=== PATIENT | male | born 1940 ===

== ENCOUNTER → 2021-12-30 | Outpatient (CLI) | payer SELFPAY ==
[2021-12-30 16:51] LABS: BASO # 0.04 K/mm3 (0.02-0.10); EOS % 2.7 % (0.0-4.0); HEMATOCRIT 45.7 % (42.0-52.0); HEMOGLOBIN 14.6 g/dL (13.5-18.0); MEAN CELL VOLUME 94 fl (78-100); MEAN CORPUSCULAR HEMOGLOBIN 30 pg (27-31); MEAN CORPUSCULAR HGB CONC 32 g/dL (33-37); MONO # 0.64 K/mm3 (0.20-0.80); NEU # 4.14 K/mm3 (1.40-6.50); PLATELET COUNT 265 K/mm3 (130-400); RED BLOOD COUNT 4.85 M/mm3 (4.20-5.60); RED CELL DISTRIBUTION WIDTH 13.1 % (11.5-14.5); WHITE BLOOD COUNT 7.3 K/mm3 (4.8-10.8)
[2021-12-30 17:08] LABS: POTASSIUM 4.2 mmol/L (3.5-5.1)
[2021-12-30 17:09] LABS: CALCIUM 9.9 mg/dL (8.3-10.5)
[2021-12-30 17:11] LABS: TOTAL PROTEIN 6.7 g/dL (6.2-8.1)
[2021-12-30 17:13] LABS: TOTAL BILIRUBIN 0.5 mg/dL (0.2-1.2)
[2021-12-30 18:39] LABS: URINE APPEARANCE CLEAR; URINE COLOR YELLOW; URINE GLUCOSE NEGATIVE (NEGATIVE); URINE KETONE NEGATIVE (NEGATIVE); URINE PROTEIN(semi-quant) NEGATIVE (NEGATIVE)
[2021-12-30 18:40] LABS: URINE BILIRUBIN NEGATIVE (NEGATIVE); URINE BLOOD NEGATIVE (NEGATIVE); URINE LEUKOCYTE ESTERASE TRACE (NEGATIVE); URINE MUCUS PRESENT (NOT PRESENT); URINE NITRATE NEGATIVE (NEGATIVE); URINE UROBILINOGEN NORMAL (NORMAL)
== END ==
LOC: LAB 16:28
PROVIDERS: Family Medicine
DX: Z00.00 Encounter for general adult medical examination without abnormal findings (principal); E78.5 Hyperlipidemia, unspecified; M19.90 Unspecified osteoarthritis, unspecified site; R35.0 Frequency of micturition

== ENCOUNTER 2024-07-16 19:50 | Emergency (ER) | payer SELFPAY ==
[~2024-07-16] VITALS: Wt 74.5 kg
[2024-07-16] MEDS ORDERED: COZAAR 50MG50 MG/TAB PO (20:06)
[2024-07-16] MEDS ORDERED: NS 500 ML IV SCH (20:15)
[2024-07-16 20:34] LABS: BASO # 0.05 K/mm3 (0.02-0.10); EOS # 0.29 K/mm3 (0.04-0.40); EOS % 3.7 % (0.0-4.0); HEMATOCRIT 48.6 % (42.0-52.0); LYMPH# 2.06 K/mm3 (1.50-4.00); MEAN CELL VOLUME 92 fl (78-100); MEAN CORPUSCULAR HEMOGLOBIN 30 pg (27-31); MEAN CORPUSCULAR HGB CONC 33 g/dL (33-37); MEAN PLATELET VOLUME 10.2 fl (7.4-10.4); MONO # 0.61 K/mm3 (0.20-0.80); NEU # 4.87 K/mm3 (1.40-6.50); PLATELET COUNT 211 K/mm3 (130-400); RED BLOOD COUNT 5.29 M/mm3 (4.20-5.60); RED CELL DISTRIBUTION WIDTH 12.8 % (11.5-14.5); WHITE BLOOD COUNT 7.9 K/mm3 (4.8-10.8)
[2024-07-16 20:39] LABS: SODIUM 139 mmol/L (136-145)
[2024-07-16 20:40] LABS: CALCIUM 9.7 mg/dL (8.3-10.5)
[2024-07-16 20:42] LABS: GLUCOSE 142 mg/dL (75-110); TOTAL PROTEIN 6.7 g/dL (6.2-8.1)
[2024-07-16 20:43] LABS: CARBON DIOXIDE 23 mmol/L (23-31)
[2024-07-16 20:47] LABS: AST-SGOT 14 U/L (5-34)
[2024-07-16 20:49] LABS: ALT/SGPT 13 U/L (0-55)
[2024-07-16 20:56] LABS: TROPONIN-I < 0.030 ng/mL (0.00-0.033)
[2024-07-16 21:08] LABS: PH-URINE 6.5 (5.0 - 8.0); URINE APPEARANCE CLEAR (CLEAR); URINE BILIRUBIN NEGATIVE (NEGATIVE); URINE BLOOD TRACE (NEGATIVE); URINE COLOR YELLOW (YELLOW); URINE GLUCOSE NEGATIVE (NEGATIVE); URINE KETONE NEGATIVE (NEGATIVE); URINE LEUKOCYTE ESTERASE NEGATIVE (NEGATIVE); URINE NITRATE NEGATIVE (NEGATIVE); URINE PROTEIN(semi-quant) NEGATIVE (NEGATIVE); URINE WBC 0-1 /hpf (0-3)
[2024-07-16 21:31] LABS: TOTAL BILIRUBIN 0.4 mg/dL (0.2-1.2)
[2024-07-16 22:36] VITALS: BP 140/70
== END 2024-07-16 22:36 | disposition home or self-care (01) ==
LOC: ED 19:50
PROVIDERS: Nurse Practitioner Family
DX: I10 Essential (primary) hypertension (principal); R53.81 Other malaise; Z79.899 Other long term (current) drug therapy
CPT/HCPCS: J7040